=== PATIENT | male | born 1990 | race Caucasian/White ===

== ENCOUNTER → 2017-04-01 | Day surgery (SDC) | payer SELFPAY ==
[~2017-04-01] VITALS: Ht 182.9 cm; Wt 64.0 kg
[~2017-04-01] MED LIST: PERCOCET 5-3251 EACH PO
--- NOTE | ~2017-04-01 | OR ---
PATIENT'S NAME: CRUZ MIRZA [facility] AGE: 26 Y [address] ROOM: [place] [address] LOCATION: [facility] [place] ADMIT DATE: 04/01/2017 OR/Procedure Report DISCHARGE DATE: FAMILY PHYSICIAN: PHYSICIAN, NO ATTENDING PHYSICIAN: Renaldo Branham SURGEON: Renaldo Branham MD [employer] PROFESSOR: MIHAI Prabhakar. DATE OF PROCEDURE: 04/01/2017 PREOPERATIVE DIAGNOSIS: Torn anterior cruciate ligament with torn lateral meniscus. POSTOPERATIVE DIAGNOSIS: Torn anterior cruciate ligament with bucket handle tear of the lateral meniscus. OPERATION: Arthroscopy of right knee with attempted meniscal repair and the partial lateral meniscectomy with ACL reconstruction using all-inside technique and the tight rope tibial and femoral fixation. ANESTHESIA: General ET tube. INDICATIONS: This is a 26-year-old male who injured his knee wrestling with his boss about 4-6 weeks ago. Symptoms and signs of an ACL tear, and an MRI was read as showing a tear of the anterior cruciate ligament with lateral meniscal tear. DESCRIPTION OF PROCEDURE: The patient was brought to the operating room, and when a satisfactory general anesthesia had been established, his right lower extremity was prepped and draped in an aseptic manner. An anterolateral portal was made and the scope sheath inserted over the blunt obturator. The knee was distended with 0.25% Marcaine with epinephrine first and then normal saline. Examination of the knee was begun in the suprapatellar pouch. A superior medial portal was made for the outflow cannula. An anteromedial portal was made for instrumentation. The suprapatellar pouch of the medial and lateral gutters were unremarkable. The patella from below was smooth as was the trochlear groove. The medial joint was entered. The medial meniscus visualized and probed and was intact. 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 This was smoothed off with the power shaver. The intercondylar notch was entered. The anterior cruciate ligament visualized and probed and it was torn. Lateral joint was entered and the lateral meniscus visualized and probed. It had a bucket-handle tear right in front of the popliteal hiatus. It was opted to attempt repair of it and several attempts were made with the Arthrex all-inside meniscal repair and had the 2nd PATIENT'S NAME: CRUZ MIRZA [facility] AGE: 26 Y [address] ROOM: [place] [address] LOCATION: [facility] [place] ADMIT DATE: 04/01/2017 OR/Procedure Report DISCHARGE DATE: FAMILY PHYSICIAN: PHYSICIAN, NO ATTENDING PHYSICIAN: Renaldo Branham anchor placement failed or the anchors did not get across the tear. An old style Arthrex meniscal repair set was then utilized and that appeared to hold. Since the old one had been only one available, it was opted to attempt to repair with the meniscus Mender. A lateral suture was able to be placed on the inferior surface of the meniscus. The curved needle was placed 1st in position across the tear, a 2nd needle was placed and positioned across the tear. 1. PDS suture was passed through one needle and retrieved with a suture retriever and passed out the other needle. The suture ends were left hanging. At this point, it was noted that there was a suture loose coming from the more medial aspect of the tear and the anchor had failed, probably because of the multiple holes and inability to hold. It was opted to excise the torn portion of the meniscus and this was done with a basket punch biters and smoothed off with the power shaver to a stable rim. The tourniquet had been inflated previously. During the wait for meniscal repair instruments, it was opted to harvest the semi-tendinosis tendon. The extremity was exsanguinated with an Esmarch bandage and a pneumatic tourniquet inflated to 250 mmHg. An anterior medial incision was made over the palpated pes anserine tendons. The incision was carried down through subcutaneous fat. The pes anserine expansion was exposed and incised. The gracilis tendon was found and isolated and then the semi-tendinosis tendon was found and delivered into the wound and harvested with a tendon stripper. The semi-tendinosis tendon was taken to the back table Yanira Shah. It is a double-looped semi-tendinosis graft with tight rope had either end. The lateral femoral socket was prepared first after the stump of the anterior cruciate ligament had been debrided, and to the [id number] position found. The guide for the femoral drill first positioned, attempting to get it straight posterior and at about the 10 o'clock position on the intercondylar notch. The guide was held in place and the metal cannula pushed down to bone. The flip cutter was drilled into the joint and then the flip cutter deployed, it was a 9.5 cutter and 30 mm long socket was made. The flip cutter was then straightened and removed while the suture passer was passed through the middle cannula and through the lateral femoral condyle and into the joint. 2. FiberWire suture loop was grasped and delivered into the anterior lateral portal. This was preserved for graft passage. The tibial socket was then prepared. The tibial guide was placed and about a 50 mm long tunnel was able to be drilled. The flip cutter was drilled up into the joint and then deployed. A 30 mm long a saw cut was made. Then, the flip cutter was removed. The suture was passed into the joint and a loop pulled out through the anteromedial portal. Both sutures were then shuttled out the anteromedial portal and the femoral end of the graft was positioned first with the sutures of the graft being pulled out the lateral condyle and the graft being delivered into the joint through the PATIENT'S NAME: CRUZ MIRZA [facility] AGE: 26 Y [address] ROOM: [place] [address] LOCATION: [facility] [place] ADMIT DATE: 04/01/2017 OR/Procedure Report DISCHARGE DATE: FAMILY PHYSICIAN: NEAL WOODY ATTENDING PHYSICIAN: Renaldo Branham passport portal. The tibial and sutures were then passed out the tibial socket and the graft positioned. The tight ropes were snugged down against the bone and then tension applied with the knee at about 30 degrees of flexion. The knee was taken through range of motion for five cycles and then the graft's tight ropes tightened again. The graft was checked and appeared to be with a decent tension. The Erik was checked and it was at most 2 mm. The pivot shift had been eliminated. The knee was extended and there was no impingement of the graft on the roof of the tunnel. The knee extended fully. These sutures were then tied over the tight rope buttons and cut. Incision posterior laterally was made and the number one PDS sutures were tied down over the capsule. The knee was irrigated copiously with saline and the pes anserine expansion closed with running 3-0 Vicryl. The remainder of the closure was by Yanira HOLM to close the subcutaneous fat with running 2-0 Vicryl and the skin with skin andrzej. The portals were closed with skin andrzej. Dressings were applied. The tourniquet deflated. The patient was awakened and sent to the recovery area, having tolerated the procedure well. MD KEILA BAER/joanna /[id number] P d: 04/01/17 1326 t: 04/15/17 1253, OPERATIVE SUMMARY
== END | disposition disaster alternative care site (69) ==
LOC: GPOC 03-26 11:00 → GSDC 03-26 11:00
PROC: 0MQN4ZZ Repair Right Knee Bursa and Ligament, Percutaneous Endoscopic Approach (ICD-10-PCS; principal; 2017-04-01)
PROC: 0SBC4ZZ Excision of Right Knee Joint, Percutaneous Endoscopic Approach (ICD-10-PCS; principal; 2017-04-01)
DX: S83.511A Sprain of anterior cruciate ligament of right knee, initial encounter (principal); X58.XXXA Exposure to other specified factors, initial encounter; S83.251A Bucket-handle tear of lateral meniscus, current injury, right knee, initial encounter
CPT/HCPCS: C1713; J0131; J0171; J0690; J1100; J2001; J2250; J2405; J3010; J3360; J7120